=== PATIENT | male | born 1985 | race Caucasian/White ===

== ENCOUNTER 2018-10-16 20:34 | Emergency (ER) | payer BC ==
[~2018-10-16] VITALS: Ht 177.8 cm; Wt 80.7 kg
[2018-10-16 21:15] LABS: URINE BILIRUBIN NEGATIVE (Negative); URINE BLOOD NEGATIVE (Negative); URINE CLARITY CLEAR; URINE COLOR YELLOW; URINE GLUCOSE-RANDOM* NEGATIVE (Negative); URINE KETONES 2+ (Negative); URINE LEUKOCYTES-REFLEX NEGATIVE (Negative); URINE NITRITE-REFLEX NEGATIVE (Negative); URINE PROTEIN (DIPSTICK) NEGATIVE (Negative); URINE SPECIFIC GRAVITY >= 1.030 (1.005-1.035); URINE UROBILINOGEN 0.2 E.U./dl (0.2-1.0)
[2018-10-16 21:37] LABS: HEMATOCRIT 47.7 % (42.0-52.0); HEMOGLOBIN 16.3 gm/dL (14.0-18.0); MCH 29.2 pg (26.0-34.0); MCHC 34.1 g/dL (28.0-37.0); MCV 85.6 fL (80.0-100.0); PLATELET COUNT 289 thou/uL (150-400); RBC 5.57 mil/uL (4.50-6.00); RDW 12.7 % (10.5-14.5); WBC 20.7 thou/uL (4.0-11.0)
[2018-10-16 21:47] LABS: CALCIUM 9.4 mg/dL (8.5-10.1); POTASSIUM 3.7 mmol/L (3.5-5.1)
[2018-10-16 21:55] LABS: ALBUMIN 4.9 g/dL (3.4-5.0); DIRECT BILIRUBIN 0.2 mg/dL (<0.1-0.3); TOTAL PROTEIN 8.2 g/dL (6.4-8.2)
[2018-10-16 22:13] LABS: ABSOLUTE NEUTROPHILS 18.8 thou/uL (1.4-8.2); ATYPICAL LYMPHS 2 %; LARGE PLATELETS OCCASIONAL
[2018-10-16] MEDS ORDERED: ZOFRAN ODT4 MG PO (23:26)
[2018-10-16] MEDS ORDERED: BENTYL 20 MG TA20 M1 PO (23:26)
[2018-10-16 23:47] VITALS: BP 115/62
== END 2018-10-16 23:49 | disposition home or self-care (01) ==
LOC: ER 20:34
PROVIDERS: Emergency Medicine
DX: K52.9 Noninfective gastroenteritis and colitis, unspecified (principal); J45.909 Unspecified asthma, uncomplicated; Z88.2 Allergy status to sulfonamides; Z91.09 Other allergy status, other than to drugs and biological substances

== ENCOUNTER 2021-01-05 00:22 | Emergency (ER) | payer OTHER ==
[~2021-01-05] VITALS: Ht 175.3 cm; Wt 88.5 kg
[~2021-01-05 00:22] MED LIST: BENTYL 20 MG TA20 M1 PO; ZOFRAN ODT4 MG PO
[2021-01-05] MEDS ORDERED: NOHOMEMEDICATIONS (00:30)
[2021-01-05] MEDS ORDERED: TESSALON PERLE100 MG PO (02:42)
[2021-01-05] MEDS ORDERED: PROAIR HFA8.5 GM INH (02:42)
[2021-01-05 03:00] VITALS: BP 132/78
== END 2021-01-05 03:00 | disposition home or self-care (01) ==
LOC: EDBD 00:22 → ER 00:22
DX: J06.9 Acute upper respiratory infection, unspecified (principal); Z20.822 Contact with and (suspected) exposure to COVID-19; J45.909 Unspecified asthma, uncomplicated; Z88.2 Allergy status to sulfonamides; Z91.09 Other allergy status, other than to drugs and biological substances